=== PATIENT | female | born 1985 | race Caucasian/White ===

== ENCOUNTER 2017-02-28 15:27 | Emergency (ER) | payer BC, MEDICAID ==
[2017-02-28 15:48] VITALS: BP 131/80
[2017-02-28] MEDS ORDERED: methylPREDNISolone Sodium Succinate 125 MG/2 ML SDV IVPUSH ONE (15:54)
[2017-02-28] MEDS ORDERED: Ondansetron 4 MG/2 ML SDV IVPUSH ONE (15:54)
[2017-02-28] MEDS ORDERED: LORazepam 2 MG/ML MDV IVPUSH ONE (15:54)
--- NOTE | 2017-02-28 16:00 | EDM.PDOC ---
ED HPI GENERAL MEDICAL PROBLEM - General Chief Complaint: Allergic Reaction Stated Complaint: ALLERGIC REACTION TO MEDS Time Seen by Provider: 02/28/17 15:42 Source of Information: Reports: Patient History Limitations: Reports: No Limitations - History of Present Illness INITIAL COMMENTS - FREE TEXT/NARRATIVE: The patient is a 31-year-old female coming in for what she thinks is a reaction to a new medication. She took zolmitriptan for the first time for a headache. About half an hour later, she started having several symptoms including pain in her jaw, a feeling of anxiety, some shortness of breath, and a numbness feeling in her arms. She also felt nauseated. She has not taken this medication before. The symptoms came on all of a sudden. She is continuing to have them. She did take 50 mg of Benadryl at home prior to coming in. No chest pain at this time. She does feel mildly short of breath. No vomiting. Headache Pain Score (Numeric/FACES): 5 - Related Data Allergies Allergy/AdvReac Type Severity Reaction Status Date / Time amitriptyline Allergy Swelling Verified 10/04/15 14:29 Penicillins AdvReac Ringing in Verified 10/04/15 14:29 the Ears Home Meds: Home Meds Vit with Ca/FA/Iron [ Plus Iron] 1 each PO BEDTIME tablet 04/23 [Rx] Acetaminophen [Tylenol] 650 mg PO Q4H 10/04/15 [History] EPINEPHrine [Auvi-Q] 1 dose IM ASDIRECTED 10/04/15 [History] ZOLMitriptan [Zolmitriptan] 5 mg PO ASDIRECTED 02/28/17 [History] Past Medical History - Past Health History Medical/Surgical History: Denies Medical/Surgical History Other HEENT History: pharyngitis Respiratory History: Reports: Asthma, Other (See Below) Other Respiratory History: upper respiratory infection Gastrointestinal History: Reports: Irritable Bowel Syndrome, Other (See Below) Other Gastrointestinal History: RLQ pain, RUQ tenderness Genitourinary History: Reports: UTI, Recurrent 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: Reports: , Spontaneous , Other (See Below) Other OB/BYN History: ovarian cyst, pelvic pain, amenorrhea, laparoscopy Other Musculoskeletal History: chronic neck pain Neurological History: Reports: Migraines Psychiatric History: Reports: Other (See Below) Other Psychiatric History: fatigue - Past Surgical History Musculoskeletal Surgical History: Reports: Other (See Below) Social & Family History - Tobacco Use Smoking Status *Q: Never Smoker Month Tobacco Last Used: 6 YEARS AGO Second Hand Smoke Exposure: Yes - Caffeine Use Caffeine Use: Reports: Coffee, Soda - Alcohol Use Days Per Week of Alcohol Use: 0 Number of Drinks Per Day: 0 Total Drinks Per Week: 0 - Recreational Drug Use Recreational Drug Use: No Drug Use in Last 12 Months: No ED ROS ALLERGIC REACTION - Review of Systems Review Of Systems: See Below Constitutional: Reports: Malaise. Denies: Fever HEENT: Reports: No Symptoms Respiratory: Reports: Shortness of Breath Cardiovascular: Reports: Lightheadedness Endocrine: Reports: Fatigue GI/Abdominal: Reports: Nausea. Denies: Abdominal Pain Neurological: Reports: Headache, Numbness, Tingling ED EXAM GENERAL NO PERIP PULSE - Physical Exam Exam: See Below Exam Limited By: No Limitations General Appearance: Alert, WD/WN, No Apparent Distress, Anxious Eye Exam: Bilateral Eye: Normal Inspection Ears: Normal External Exam Nose: Normal Inspection Throat/Mouth: Normal Inspection, Normal Oropharynx, Normal Voice, No Airway Compromise Head: Atraumatic, Normocephalic Neck: Normal Inspection, Supple, Non-Tender, Full Range of Motion Respiratory/Chest: No Respiratory Distress, Lungs Clear, Normal Breath Sounds, Chest Non-Tender Cardiovascular: Normal Peripheral Pulses, Regular Rate, Rhythm, No Murmur GI/Abdominal: Soft, Non-Tender, No Distention Neurological: Alert, Oriented, CN II-XII Intact, Normal Cognition, No Motor/ Sensory Deficits Psychiatric: Normal Affect, Normal Mood Skin Exam: Warm, Dry, Normal Color, No Rash Course - Vital Signs Last Recorded V/S: Last Vital Signs Temp 36.8 C 02/28/17 15:47 Pulse 85 02/28/17 15:47 Resp 13 02/28/17 15:47 BP 131/80 02/28/17 15:47 Pulse Ox 99 02/28/17 15:47 - Orders/Labs/Meds Meds: Medications Discontinued Medications Generic Name Dose Route Start Last Admin Trade Name Freq PRN Reason Stop Dose Admin Lorazepam 0.5 mg 02/28/17 15:54 02/28/17 16:08 Ativan IVPUSH 02/28/17 15:55 0.5 mg ONETIME ONE Administration Methylprednisolone Sodium Succinate 125 mg 02/28/17 15:54 02/28/17 16:12 Solu-Medrol IVPUSH 02/28/17 15:55 125 mg ONETIME ONE Administration Ondansetron HCl 4 mg 02/28/17 15:54 02/28/17 16:10 Zofran IVPUSH 02/28/17 15:55 4 mg ONETIME ONE Administration - Re-Assessments/Exams Free Text/Narrative Re-Assessment/Exam: 02/28/17 18:11 Patient's symptoms are more consistent with several common reactions on the adverse reaction side effect listed for zolmitriptan. I don't think that this is an allergic reaction. However given the patient's sensation of throat pain we will go ahead and give the steroids just in case. However she has no rash, no itching, no wheezing, or other symptoms to suggest an allergic reaction or anaphylaxis. She is anxious, we gave her 0.5 mg of Ativan. She felt much much better at time of my reassessment around 5:30 PM and requested discharge. She will follow up with her primary doctor for further care. Departure - Departure Time of Disposition: 17:30 Disposition: Home, Self-Care 01 Clinical Impression: Adverse drug reaction Qualifiers: Encounter type: initial encounter Qualified Code(s): T88.7XXA - Unspecified adverse effect of drug or medicament, initial encounter - Discharge Information Instructions: Drug Allergy, [id number] Referrals: Debora Ty MD [Primary Care Provider] - Forms: ED Department Discharge Additional Instructions: 1. Return to the ED for a recheck if you have difficulty breathing, difficulty swallowing, or any other concerning symptoms. 2. Otherwise follow up with Dr. Hopper this week for further care.
== END 2017-02-28 17:30 | disposition home or self-care (01) ==
LOC: JD.ED 15:27
DX: R68.84 Jaw pain (principal); R06.02 Shortness of breath; T39.8X5A Adverse effect of other nonopioid analgesics and antipyretics, not elsewhere classified, initial encounter; R51 Headache; J45.909 Unspecified asthma, uncomplicated; Z88.0 Allergy status to penicillin; Z88.8 Allergy status to other drugs, medicaments and biological substances; Z87.440 Personal history of urinary (tract) infections
CPT/HCPCS: 96374; 96375; 99283; J2060; J2405; J2930; 99284

== ENCOUNTER 2017-09-12 13:51 | Emergency (ER) | payer SELFPAY ==
[2017-09-12] MEDS ORDERED: Sodium Chloride 0.9% 1,000 ML IV ONE (14:25)
[2017-09-12] MEDS ORDERED: Sodium Chloride 0.9% 10 ML Syringe FLUSH PRN (14:25)
[2017-09-12] MEDS ORDERED: Ondansetron 4 MG/2 ML SDV IVPUSH ONE (14:25)
[2017-09-12] MEDS ORDERED: Morphine 4 MG/ML Syringe IVPUSH ONE (14:25)
--- NOTE | 2017-09-12 14:53 | EDM.PDOC ---
ED HPI GENERAL MEDICAL PROBLEM - General Chief Complaint: Abdominal Pain Stated Complaint: STOMACH PAIN Time Seen by Provider: 09/12/17 14:23 Source of Information: Reports: Patient History Limitations: Reports: No Limitations - History of Present Illness INITIAL COMMENTS - FREE TEXT/NARRATIVE: 31-year-old female presents for evaluation and treatment of severe right-sided abdominal pain. Reports that the abdominal pain started at 0300 this morning. She describes the pain as a severe contraction and rates the pain as a 9 or 10 out of 10. She reports associated symptoms of nausea and diarrhea. No fevers, vomiting or any blood in her stool. No urinary symptoms. States that she's had at least 20 episodes of diarrhea so far today. Reports she took some Tylenol around 11:30 today. Patient reports movement exacerbates the pain. States the bumps in the road on the way over to the ER make pain worse. Patient denies any recent travel. Patient denies any recent antibiotic usage. Patient reports previous abdominal surgeries of a hysterectomy with bilateral salpingostomy and a cholecystectomy. Patient reports that she has a history of ovarian cyst. Currently does not have a primary care provider. Treatments CONSUMER LENDING MANAGER: Reports: Other (see below) Other Treatments CONSUMER LENDING MANAGER: tylenol at 1130 Right Abdomen Pain Score (Numeric/FACES): 10 - Related Data Allergies Allergy/AdvReac Type Severity Reaction Status Date / Time amitriptyline Allergy Swelling Verified 10/04/15 14:29 Penicillins AdvReac Ringing in Verified 10/04/15 14:29 the Ears Home Meds: Home Meds Acetaminophen [Tylenol] 650 mg PO Q4H 10/04/15 [History] Acetaminophen/oxyCODONE [Percocet 325-5 MG] 1 tab PO Q6HR PRN #12 tab 09/12/17 [ Rx] Ondansetron HCl [Zofran] 4 mg PO Q8HR PRN #15 tablet 09/12/17 [Rx] Past Medical History - Past Health History Medical/Surgical History: Denies Medical/Surgical History Other HEENT History: pharyngitis Respiratory History: Reports: Asthma, Other (See Below) Other Respiratory History: upper respiratory infection Gastrointestinal History: Reports: Irritable Bowel Syndrome, Other (See Below) Other Gastrointestinal History: RLQ pain, RUQ tenderness Genitourinary History: Reports: UTI, Recurrent 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: 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: , Spontaneous , Other (See Below) Other OB/BYN History: ovarian cyst, pelvic pain, amenorrhea, laparoscopy Other Musculoskeletal History: chronic neck pain Neurological History: Reports: Migraines Psychiatric History: Reports: Other (See Below) Other Psychiatric History: fatigue - Past Surgical History Musculoskeletal Surgical History: Reports: Other (See Below) Social & Family History - Tobacco Use Smoking Status *Q: Never Smoker Month/Year Tobacco Last Used: 6 YEARS AGO Second Hand Smoke Exposure: Yes - Caffeine Use Caffeine Use: Reports: None - Alcohol Use Days Per Week of Alcohol Use: 0 Number of Drinks Per Day: 0 Total Drinks Per Week: 0 - Recreational Drug Use Recreational Drug Use: No Drug Use in Last 12 Months: No ED ROS GENERAL - Review of Systems Review Of Systems: See Below Constitutional: Reports: Fever. Denies: Chills GI/Abdominal: Reports: Abdominal Pain (right sided abdominal pain), Nausea. Denies: Hematochezia, Melena, Vomiting : Reports: No Symptoms ED EXAM, GI/ABD - Physical Exam Exam: See Below Exam Limited By: No Limitations General Appearance: Alert, WD/WN, Moderate Distress, Obese Throat/Mouth: Normal Inspection, Normal Lips, Normal Voice, No Airway Compromise Respiratory/Chest: No Respiratory Distress, Lungs Clear, Normal Breath Sounds Cardiovascular: Normal Peripheral Pulses, Regular Rate, Rhythm, No Murmur GI/Abdominal Exam: Normal Bowel Sounds, Soft, Guarding, Rebound, Tender (right arb), Other (Positive psoas sign, positive obturator sign, positive pain with heel percussion. Reports pain at McBurney's point.) Neurological: Alert, Oriented, Normal Cognition Psychiatric: Normal Affect, Normal Mood Skin Exam: Warm, Dry, Normal Color Course - Vital Signs Last Recorded V/S: Last Vital Signs Temp 37.1 C 09/12/17 17:39 Pulse 98 09/12/17 17:39 Resp 14 09/12/17 17:39 BP 124/69 09/12/17 17:39 Pulse Ox 98 09/12/17 17:39 - Orders/Labs/Meds Orders: Active Orders 24 hr Category Date Time Status Peripheral IV Care [RC] . DIRECTED Care 09/12/17 14:26 Active UA W/MICROSCOPIC [URIN] Stat Lab 09/12/17 15:23 Ordered Peripheral IV Insertion Adult [OM.PC] Routine Oth 09/12/17 14:25 Ordered Labs: Laboratory Tests 09/12/17 09/12/17 09/12/17 Range/Units 14:44 14:44 15:23 WBC 13.00 H (3.98-10.04) K/mm3 RBC 4.66 (3.98-5.22) M/mm3 Hgb 13.8 (11.2-15.7) gm/L Hct 41.1 (34.1-44.9) % MCV 88.2 (79.4-94.8) fl MCH 29.6 (25.6-32.2) pg MCHC 33.6 (32.2-35.5) g/dl RDW Std Deviation 38.8 (36.4-46.3) fL Plt Count 314 (182-369) K/mm3 MPV 9.2 L (9.4-12.3) fl Neutrophils % (Manual) 80 H (40-60) % Band Neutrophils % 2 (0-10) % Lymphocytes % (Manual) 15 L (20-40) % Atypical Lymphs % 0 % Monocytes % (Manual) 1 L (2-10) % Eosinophils % (Manual) 1 (0.7-5.8) % Basophils % (Manual) 1 (0.1-1.2) Platelet Estimate Adequate RBC Morph Comment Normal Sodium 140 (136-145) mEq/L Potassium 3.9 (3.5-5.1) mEq/L Chloride 104 (98-107) mEq/L Carbon Dioxide 24 (21-32) mEq/L Anion Gap 15.9 H (5-15) BUN 8 (7-18) mg/dL Creatinine 0.8 (0.55-1.02) mg/dL Est Cr Clr Drug Dosing 104.67 mL/min Estimated GFR (MDRD) > 60 (>60) mL/min BUN/Creatinine Ratio 10.0 L (14-18) Glucose 108 H (74-106) mg/dL Calcium 9.3 (8.5-10.1) mg/dL Total Bilirubin 0.5 (0.2-1.0) mg/dL AST 14 L (15-37) U/L ALT 20 (14-59) U/L Alkaline Phosphatase 56 (46-116) U/L C-Reactive Protein 1.0 (<1.0) mg/dL Total Protein 7.7 (6.4-8.2) g/dl Albumin 4.0 (3.4-5.0) g/dl Globulin 3.7 gm/dL Albumin/Globulin Ratio 1.1 (1-2) Lipase 69 L (73-393) U/L Urine Color Light yellow (Yellow) Urine Appearance Slt cloudy H (Clear) Urine pH 7.0 (5.0-8.0) Ur Specific [place] 1.015 (1.005-1.030) Urine Protein Negative (Negative) Urine Glucose (UA) Negative (Negative) Urine Ketones Negative (Negative) Urine Occult Blood Negative (Negative) Urine Nitrite Negative (Negative) Urine Bilirubin Negative (Negative) Urine Urobilinogen 0.2 (0.2-1.0) Ur Leukocyte Esterase Negative (Negative) Urine RBC Not seen (0-5) /hpf Urine WBC 0-5 (0-5) /hpf Ur Epithelial Cells 10-20 H (0-5) /hpf Urine Bacteria Not seen (FEW) /hpf Urine Mucus Not seen (FEW) /hpf Meds: Medications Discontinued Medications Generic Name Dose Route Start Last Admin Trade Name Freq PRN Reason Stop Dose Admin Diatrizoate Meglum/Diatrizoate Sod 90 ml 09/12/17 15:10 09/12/17 15:59 Gastrografin 37% PO 09/12/17 15:11 90 ml ONETIME ONE Administration Sodium Chloride 1,000 mls @ 999 mls/hr 09/12/17 14:25 09/12/17 14:47 Normal Saline IV 09/12/17 15:25 999 mls/hr ONETIME ONE Administration Iopamidol 125 ml 09/12/17 15:10 09/12/17 16:00 Isovue-300 (61%) IVPUSH 09/12/17 15:11 125 ml ONETIME ONE Administration Ketorolac Tromethamine 30 mg 09/12/17 17:34 09/12/17 17:40 Toradol IVPUSH 09/12/17 17:35 30 mg ONETIME ONE Administration Morphine Sulfate 4 mg 09/12/17 14:25 09/12/17 14:48 Morphine IVPUSH 09/12/17 14:26 4 mg ONETIME ONE Administration Ondansetron HCl 4 mg 09/12/17 14:25 09/12/17 14:48 Zofran IVPUSH 09/12/17 14:26 4 mg ONETIME ONE Administration Sodium Chloride 10 ml 09/12/17 14:25 09/12/17 14:48 Saline Flush FLUSH 10 ml ASDIRECTED PRN Administration Keep Vein Open Sodium Chloride 10 ml 09/12/17 15:10 09/12/17 16:00 Saline Flush FLUSH 09/12/17 15:11 10 ml ONETIME ONE Administration - Radiology Interpretation Free Text/Narrative:: CT abdomen and pelvis Technique: Multiple axial sections were obtained from above the dome of the diaphragm inferiorly through the pubic symphysis. Intravenous and oral contrast was utilized. Comparison: Previous CT abdomen and pelvis exam of 04/25/14. Findings: Visualized lung bases shows nothing acute. Liver shows no focal parenchymal abnormality. Spleen appears within normal limits. Adrenal glands show no nodule. Kidneys show symmetric contrast enhancement without hydronephrosis or mass. Pancreas is within normal limits. Surgical clips are seen from previous cholecystectomy. Aorta shows no aneurysmal dilatation. No retroperitoneal adenopathy or mesenteric abnormalities are seen. Appendix is seen which is retrocecal in location and appears normal in size. No pelvic mass or adenopathy is seen. Mild amount of free fluid is seen. Uterus not identified presumably from prior hysterectomy. Bone window settings were reviewed which appear within normal limits for the patient's age. Delayed images show contrast within the distal ureters and within the bladder. Impression: 1. Incidental findings. Appendix is seen and appears within normal limits. Nothing acute is appreciated on CT study of the abdomen and pelvis. - Re-Assessments/Exams Free Text/Narrative Re-Assessment/Exam: 09/12/17 17:55 I reviewed the labs and imaging with the patient. Her pain returned after the morphine so I order her some Toradol. Etiology for abdominal pain not entirely clear at this moment. I will send her home with instructions for stool studies. She reports that she has had at least 20 episodes of diarrhea today but has not had any since entering the ER which she states is because she is on anything to eat. I will send her home with things to collect Stool studies for a culture, white blood cell and C. difficile. It is entirely possible that she has something like irritable bowel or inflammatory bowel. She has on her history irritable bowel syndrome but the sounds that this is a self-diagnosis. She states she's never had any pain this severe. I will discharge her home at this time. She is instructed to follow-up with her primary care provider. She may require colonoscopy in the future. She states she 's had one in the past dose for some entirely unrelated. Discharge instructions as documented. Departure - Departure Time of Disposition: 17:57 Disposition: Home, Self-Care 01 Condition: Fair Clinical Impression: Abdominal pain, Diarrhea - Discharge Information Prescriptions: Acetaminophen/oxyCODONE [Percocet 325-5 MG] 1 tab PO Q6HR PRN #12 tab PRN Reason: Pain Ondansetron HCl [Zofran] 4 mg PO Q8HR PRN #15 tablet PRN Reason: Nausea Instructions: Diarrhea, Adult, Abdominal Pain, Adult, [id number] Referrals: PCP,None [Primary Care Provider] - Deedee Manuel MD [Physician] - Forms: ED Department Discharge Additional Instructions: Recommend clear fluids and a bland diet. Recommend starting a probiotic. These are available [id number]. you were given medication the other can affect your ability to drive and operate machinery. Do not drive or operate machinery within 12 hours of taking prescription narcotic pain medication. Follow-up with family medicine this week for recheck of your symptoms. Recommend Dr. Manuel or Dr. Cadet at the [facility]. Call [phone] to schedule the provider there. Zofran 1 tab sublingual every 8 hours as needed for nausea. Percocet 1 tab every 6 hours as needed for severe pain not relieved by OTC Tylenol and Motrin. Percocet is habit-forming. take as few as needed to control your pain. Do not drive or operate machinery within 12 hours of taking Percocet. Please return to the ER for symptoms change or worsen. Please return the stool studies when you have collected them. - My Orders Last 24 Hours: My Active Orders 09/12/17 14:25 Peripheral IV Insertion Adult [OM.PC] Routine 09/12/17 14:26 Peripheral IV Care [RC] . DIRECTED 09/12/17 15:23 UA W/MICROSCOPIC [URIN] Stat - Assessment/Plan Last 24 Hours: My Active Orders 09/12/17 14:25 Peripheral IV Insertion Adult [OM.PC] Routine 09/12/17 14:26 Peripheral IV Care [RC] . DIRECTED 09/12/17 15:23 UA W/MICROSCOPIC [URIN] Stat
[2017-09-12] MEDS ORDERED: Iopamidol 612 MG/ML 150 ML Bottle IVPUSH ONE (15:10)
[2017-09-12] MEDS ORDERED: Diatrizoate Meglumine/Diatrizoate Sodium 37% 120 ML Bottle PO ONE (15:10)
[2017-09-12] MEDS ORDERED: Sodium Chloride 0.9% 10 ML Syringe FLUSH ONE (15:10)
--- NOTE | 2017-09-12 16:27 | CT ---
CT abdomen and pelvis Technique: Multiple axial sections were obtained from above the dome of the diaphragm inferiorly through the pubic symphysis. Intravenous and oral contrast was utilized. Comparison: Previous CT abdomen and pelvis exam of 04/25/14. Findings: Visualized lung bases shows nothing acute. Liver shows no focal parenchymal abnormality. Spleen appears within normal limits. Adrenal glands show no nodule. Kidneys show symmetric contrast enhancement without hydronephrosis or mass. Pancreas is within normal limits. Surgical clips are seen from previous cholecystectomy. Aorta shows no aneurysmal dilatation. No retroperitoneal adenopathy or mesenteric abnormalities are seen. Appendix is seen which is retrocecal in location and appears normal in size. No pelvic mass or adenopathy is seen. Mild amount of free fluid is seen. Uterus not identified presumably from prior hysterectomy. Bone window settings were reviewed which appear within normal limits for the patient's age. Delayed images show contrast within the distal ureters and within the bladder. Impression: 1. Incidental findings. Appendix is seen and appears within normal limits. Nothing acute is appreciated on CT study of the abdomen and pelvis. Diagnostic code #2
[2017-09-12] MEDS ORDERED: Ketorolac 30 MG/ML SDV IVPUSH ONE (17:34)
[2017-09-12 17:40] VITALS: BP 124/69
== END 2017-09-12 18:15 | disposition home or self-care (01) ==
LOC: JD.ED 13:51
DX: R10.9 Unspecified abdominal pain (principal); R19.7 Diarrhea, unspecified; Z88.0 Allergy status to penicillin; Z88.8 Allergy status to other drugs, medicaments and biological substances
CPT/HCPCS: 36415; 74177; 80053; 81001; 83690; 85025; 86140; 96361; 96374; 96375; 99284; J1885; J2270; J2405; J7040; J7050; Q9963; Q9967

== ENCOUNTER 2019-05-24 16:22 | Emergency (ER) | payer MEDICAID ==
[2019-05-24 16:31] VITALS: BP 145/76; PULSE 93
--- NOTE | 2019-05-24 17:08 | EDM.PDOC ---
ED HPI GENERAL MEDICAL PROBLEM - General Chief Complaint: ENT Problem Stated Complaint: CHEST PAIN/FACE-SCALP PAIN Time Seen by Provider: 05/24/19 16:47 Source of Information: Reports: Patient History Limitations: Reports: No Limitations - History of Present Illness INITIAL COMMENTS - FREE TEXT/NARRATIVE: She's unfortunate 33-year-old female who is obese the [facility] Department today with complaint of hyperesthetic pain and burning sensation to the left side of her head. This started 2-3 days ago. The sensation does not cross midline. Patient has not had any nausea or vomiting. No rash. Patient reports that she even has pain in that side of her head when she brushes her hair. And into her left ear. Patient poor she's had intermittent episodes of left upper abdominal pain that she describes as a cramping type pain that comes on last about 10 seconds and then resolves. That symptoms have been going on for the last 3-4 months Left Face/Facial Pain Score (Numeric/FACES): 2 - Related Data Allergies Allergy/AdvReac Type Severity Reaction Status Date / Time amitriptyline Allergy Swelling Verified 10/04/15 14:29 Penicillins AdvReac Ringing in Verified 10/04/15 14:29 the Ears Home Meds: Home Meds valACYclovir [Valtrex] 1,000 mg PO BID #14 tab 05/24/19 [Rx] Past Medical History - Past Health History Medical/Surgical History: Denies Medical/Surgical History Other HEENT History: pharyngitis Respiratory History: Reports: Asthma Other Respiratory History: upper respiratory infection Gastrointestinal History: Reports: Irritable Bowel Syndrome Other Gastrointestinal History: RLQ pain, RUQ tenderness Genitourinary History: Reports: UTI, Recurrent 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 History: Reports: Polycystic Ovaries, , Spontaneous Other 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 History: ovarian cyst, pelvic pain, amenorrhea, laparoscopy Other Musculoskeletal History: chronic neck pain Neurological History: Reports: Migraines Psychiatric History: Reports: Other (See Below) Other Psychiatric History: fatigue - Past Surgical History HEENT Surgical History: Reports: Tonsillectomy GI Surgical History: Reports: Cholecystectomy Female Surgical History: Reports: Hysterectomy Musculoskeletal Surgical History: Reports: Arthroscopic Knee Social & Family History - Tobacco Use Smoking Status *Q: Never Smoker - Caffeine Use Caffeine Use: Reports: Soda - Recreational Drug Use Recreational Drug Use: No ED ROS GENERAL - Review of Systems Review Of Systems: See Below Constitutional: Reports: No Symptoms. Denies: Fever, Chills Respiratory: Denies: Shortness of Breath Cardiovascular: Denies: Chest Pain GI/Abdominal: Reports: Abdominal Pain Skin: Reports: Other (Hyperesthesia) ED EXAM, GENERAL - Physical Exam Exam: See Below Exam Limited By: No Limitations General Appearance: Alert, WD/WN, Mild Distress, Obese Ears: Normal External Exam, Normal Canal, Hearing Grossly Normal, Normal TMs Nose: Normal Inspection, Normal Mucosa, No Blood Throat/Mouth: Normal Inspection, Normal Lips, Normal Teeth, Normal Gums, Normal Oropharynx, Normal Voice, No Airway Compromise Head: Other (Hyperesthesia to left scalp and left forehead) Respiratory/Chest: No Respiratory Distress, Lungs Clear, Normal Breath Sounds, No Accessory Muscle Use, Chest Non-Tender Cardiovascular: Normal Peripheral Pulses, Regular Rate, Rhythm, No Edema, No Gallop, No JVD, No Murmur, No Rub GI/Abdominal: Normal Bowel Sounds, Soft, Non-Tender, No Organomegaly, No Distention, No Abnormal Bruit, No Mass Back Exam: Normal Inspection, Full Range of Motion, NT Extremities: Normal Inspection, Normal Range of Motion, Non-Tender, Normal Capillary Refill, No Pedal Edema Neurological: Alert, Oriented Skin Exam: Warm, Dry, No Rash Course - Vital Signs Last Recorded V/S: Last Vital Signs Temp 97.8 F 05/24/19 16:29 Pulse 93 05/24/19 16:29 Resp 16 05/24/19 16:29 BP 145/76 H 05/24/19 16:29 Pulse Ox 99 05/24/19 16:29 Departure - Departure Time of Disposition: 17:06 Disposition: Home, Self-Care 01 Clinical Impression: Neuralgia - Discharge Information Prescriptions: valACYclovir [Valtrex] 1,000 mg PO BID #14 tab Referrals: Serjio Sullivan PA-C [Primary Care Provider] - Additional Instructions: Home, rest, Tylenol or Motrin for pain, return as needed for worsening condition Sepsis Event Note - Evaluation Sepsis Screening Result: No Definite Risk - Focused Exam Vital Signs: Vital Signs Temp Pulse Resp BP Pulse Ox 05/24/19 16:29 97.8 F 93 16 145/76 H 99 Date Exam was Performed: 05/24/19 Time Exam was Performed: 17:04
== END 2019-05-24 17:25 | disposition home or self-care (01) ==
LOC: JD.ED 16:22
DX: M79.2 Neuralgia and neuritis, unspecified (principal); J45.909 Unspecified asthma, uncomplicated; Z88.0 Allergy status to penicillin; Z88.8 Allergy status to other drugs, medicaments and biological substances; Z79.899 Other long term (current) drug therapy
CPT/HCPCS: 99284

== ENCOUNTER 2023-03-14 13:33 | Emergency (ER) | payer MEDICAID ==
[2023-03-14] MEDS ORDERED: methylPREDNISolone Sodium Succinate 125 MG/2 ML SDV IVPUSH ONE (13:58)
[2023-03-14] MEDS ORDERED: diphenhydrAMINE 50 MG/ML SDV IVPUSH ONE (13:58)
[2023-03-14] MEDS ORDERED: Famotidine 20 MG/2 ML SDV IVPUSH ONE (13:58)
[2023-03-14] MEDS ORDERED: Sodium Chloride 0.9% 1,000 ML IV SCH (14:00)
[2023-03-14] MEDS ORDERED: predniSONE 20 MG Tab PO ONE (14:55)
[2023-03-14 15:50] VITALS: BP 133/78; PULSE 83
== END 2023-03-14 15:10 | disposition home or self-care (01) ==
LOC: JD.ED 13:33
DX: T78.40XA Allergy, unspecified, initial encounter (principal); T63.441A Toxic effect of venom of bees, accidental (unintentional), initial encounter; J45.909 Unspecified asthma, uncomplicated; Z88.0 Allergy status to penicillin; Z88.6 Allergy status to analgesic agent; Z88.8 Allergy status to other drugs, medicaments and biological substances; Z79.899 Other long term (current) drug therapy
CPT/HCPCS: 96374; 96375; 99284; J1200; J2930; J3490; J7030; J7512; 99283

== ENCOUNTER 2024-05-24 19:02 | Emergency (ER) | payer MEDICAID ==
[2024-05-24] MEDS ORDERED: Sodium Chloride 0.9% 10 ML Syringe FLUSH PRN (19:18)
[2024-05-24] MEDS: Famotidine 20 MG/2 ML SDV IVPUSH ONE (19:26)
[2024-05-24] MEDS: diphenhydrAMINE 50 MG/ML SDV IVPUSH ONE (19:26)
[2024-05-24] MEDS: methylPREDNISolone Sodium Succinate 125 MG/2 ML SDV IVPUSH ONE (19:26)
[2024-05-24] MEDS: HYDROmorphone 0.5 MG/0.5 ML Syringe IVPUSH ONE ×2 (19:26→21:21)
[2024-05-24 19:57] LABS: BASOPHILS PERCENT AUTO 0.2 % (0.0-1.0); HEMOGLOBIN 14.4 gm/dl (12.0-16.0); IMMATURE GRAN ABSOLUTE AUTO 0.05 K/mm3 (0.00-0.05); IMMATURE GRAN PERCENT AUTO 0.5 % (0.0-0.4); LYMPHOCYTES ABSOLUTE AUTO 0.9 K/mm3 (1.0-4.8); LYMPHOCYTES PERCENT AUTO 8.4 % (24.0-44.0); MEAN CORPUSCULAR HGB CONC 32.7 g/dl (32.0-36.0); MEAN CORPUSCULAR VOLUME 91.7 fl (83.0-99.0); MEAN PLATELET VOLUME 9.5 fl (9.4-12.3); MONOCYTES ABSOLUTE AUTO 0.2 K/mm3 (0.0-0.8); MONOCYTES PERCENT AUTO 1.4 % (0.0-8.0); NEUTROPHILS ABSOLUTE AUTO 9.8 K/mm3 (1.8-7.7); NEUTROPHILS PERCENT AUTO 89.5 % (41.0-71.0); PLATELET COUNT,PLT 460 K/mm3 (150-400)
[2024-05-24 20:14] LABS: INR 0.99; PROTHROMBIN TIME 10.5 SECONDS (9.7-12.0)
[2024-05-24 20:16] LABS: PTT,PARTIAL THROMBOPLSTIN TIME 24.5 SECONDS (21.7-31.4)
[2024-05-24 20:30] LABS: A/G RATIO 0.9 (1-2); ALBUMIN 4.1 g/dl (3.4-5.0); ANION GAP 20.1 (5-15); BILIRUBIN TOTAL 0.3 mg/dL (0.2-1.0); BUN/CREATININE RATIO 9.1 (14-18); C-REACTIVE PROTEIN 0.35 mg/dL (<0.30); CALCIUM 9.4 mg/dL (8.5-10.1); CREATININE 1.1 mg/dL (0.55-1.02); EST CRCL DRUG DOSING (CG) 71.32 mL/min; MAGNESIUM 1.7 mg/dL (1.8-2.4); PROTEIN TOTAL,TP 8.6 g/dl (6.4-8.2)
[2024-05-24 20:32] LABS: D-DIMER QUANTITATIVE < 0.19 mg/L (0.19-0.50); POTASSIUM,K 4.1 mEq/L (3.5-5.1)
[2024-05-24 22:23] VITALS: BP 159/91; PULSE 104
== END 2024-05-24 22:23 | disposition home or self-care (01) ==
LOC: JD.ED 19:02
DX: T78.40XA Allergy, unspecified, initial encounter (principal); Z88.0 Allergy status to penicillin; Z88.8 Allergy status to other drugs, medicaments and biological substances; Z79.84 Long term (current) use of oral hypoglycemic drugs; Z79.899 Other long term (current) drug therapy; Z90.49 Acquired absence of other specified parts of digestive tract
CPT/HCPCS: 36415; 71045; 80053; 83735; 84484; 85025; 85379; 85610; 85730; 86140; 93005; 96374; 96375; 96376; 99285; J1171; J1200; J2919; J3490